=== PATIENT | female | born 1995 | race Caucasian/White ===

== ENCOUNTER → 2017-11-27 | Outpatient (CLI) | payer BC ==
[2017-11-27 18:34] LABS: Basophils # (A) 0.1 k/uL (0-0.2); Basophils % (A) 1 %; Eosinophils # (A) 0.1 k/uL (0-0.7); Eosinophils % (A) 2 %; HCT 43.4 % (34.0-46.0); HGB 13.9 gm/dL (11.4-16.0); Lymphocytes % (A) 33 %; MCH 28.6 pg (25.0-35.0); MCV 89.3 fL (80.0-100.0); Mean Platelet Volume 7.3; Monocytes # (A) 0.3 k/uL (0-1.0); Monocytes % (A) 5 %; Neutrophils # (A) 3.5 k/uL (1.3-7.7); Neutrophils % (A) 57 %; Platelet Count 338 k/uL (150-450); RBC 4.86 m/uL (3.80-5.40); RDW 12.4 % (11.5-15.5); WBC 6.1 k/uL (3.8-10.6)
[2017-11-27 18:39] LABS: ALT 37 U/L (9-52); AST 30 U/L (14-36); Albumin 4.4 g/dL (3.5-5.0); Alkaline Phosphatase 69 U/L (38-126); Anion Gap 12 mmol/L; Blood Urea Nitrogen 13 mg/dL (7-17); Calcium 9.8 mg/dL (8.4-10.2); Carbon Dioxide 29 mmol/L (22-30); Chloride 100 mmol/L (98-107); Glucose 87 mg/dL (74-99); Potassium 4.2 mmol/L (3.5-5.1); Sodium 141 mmol/L (137-145); Total Bilirubin 0.5 mg/dL (0.2-1.3); Total Protein 7.8 g/dL (6.3-8.2)
== END | disposition home or self-care (01) ==
LOC: MMGSC 14:54
PROVIDERS: ATTEND Family Medicine
DX: R23.3 Spontaneous ecchymoses (principal); N39.0 Urinary tract infection, site not specified
CPT/HCPCS: 36415; 80053; 85025; 87086

== ENCOUNTER → 2018-07-01 | Outpatient (CLI) | payer BC ==
[2018-07-01 14:09] LABS: Basophils # (A) 0.1 k/uL (0-0.2); Basophils % (A) 1 %; Eosinophils # (A) 0.1 k/uL (0-0.7); Eosinophils % (A) 1 %; HCT 38.8 % (34.0-46.0); HGB 12.7 gm/dL (11.4-16.0); Lymphocytes # (A) 1.4 k/uL (1.0-4.8); Lymphocytes % (A) 20 %; MCH 28.8 pg (25.0-35.0); MCHC 32.8 g/dL (31.0-37.0); MCV 87.7 fL (80.0-100.0); Mean Platelet Volume 6.5; Monocytes # (A) 0.5 k/uL (0-1.0); Monocytes % (A) 8 %; Neutrophils # (A) 4.5 k/uL (1.3-7.7); Neutrophils % (A) 67 %; Platelet Count 248 k/uL (150-450); RBC 4.43 m/uL (3.80-5.40); WBC 6.7 k/uL (3.8-10.6)
--- NOTE | 2018-07-01 15:49 | XR ---
EXAMINATION TYPE: XR chest 2V DATE OF EXAM: 07/01/2018 COMPARISON: Prior chest x-ray 05/10/2012 HISTORY: Chest pain TECHNIQUE: Frontal and lateral views of the chest are obtained. FINDINGS: There is no focal air space opacity, pleural effusion, or pneumothorax seen. The cardiac silhouette size is within normal limits. The osseous structures are intact. There is a mild spinal curvature. IMPRESSION: No acute cardiopulmonary process.
--- NOTE | 2018-07-01 15:51 | XR ---
Thoracic spine HISTORY: Pain 3 views of the thoracic spine There is a mild dextroscoliosis centered at approximately T9. Thoracic vertebral bodies show preserve d height, alignment, and bone mineralization. Disc spaces are maintained. Mild spondylosis present at the lower thoracic spine. IMPRESSION: Mild spinal curvature, thoracic spondylosis.
[2018-07-01 16:38] LABS: Erythrocyte Sedimentation Rate 25 mm/hr (0-20)
== END | disposition home or self-care (01) ==
LOC: LABWHC1 13:49
PROVIDERS: ATTEND Physician Assistant
DX: R07.9 Chest pain, unspecified (principal); M47.814 Spondylosis without myelopathy or radiculopathy, thoracic region; M43.8X4 Other specified deforming dorsopathies, thoracic region
CPT/HCPCS: 36415; 71046; 72072; 85025; 85652

== ENCOUNTER 2018-10-07 06:26 | Day surgery (SDC) | payer BC ==
[2018-10-01 09:15] VITALS: BMI 28.3
[~2018-10-07 06:26] MED LIST: CLINDAMYCIN 600 MG in DEXTROSE 5% IN WATER 50 ML IVPB ONE; DEXAMETHASONE SOD PHOSPHATE 4 MG/ML 1 ML VIAL IV ONE; FAMOTIDINE 20 MG/2 ML VIAL IV ONE; HYDROmorphone 0.5 MG/0.5 ML SYRINGE IVP PRN; LACTATED RINGERS 1,000 ML IV SCH; MIDAZOLAM 2 MG/2 ML VIAL IV PRN; ONDANSETRON 4 MG/2 ML VIAL IVP ONE; SCOPOLAMINE 1.5MG/72HR PATCH TRANSDERM ONE
[2018-10-07] MEDS: OXYMETAZOLINE 0.05% NASL SPRAY 1 SPRAY BOTTLE NASAL ONE ×5 (07:13→07:47)
[2018-10-07] MEDS ORDERED: LIDOCAINE 1% 20 ML VIAL (10MG/ML) FOR IV START INTRADERMA ONE (07:16)
[2018-10-07] MEDS ORDERED: SUCCINYLCHOLINE CHLORIDE 100 MG/5 ML SYR IV ONE (08:07)
[2018-10-07] MEDS ORDERED: fentaNYL (PF) 50 MCG/ML 2 ML AMP ONE (08:07)
[2018-10-07] MEDS ORDERED: MIDAZOLAM 2 MG/2 ML VIAL ONE (08:07)
[2018-10-07] MEDS ORDERED: HYDROmorphone (PF) 1 MG/ML ONE (08:07)
[2018-10-07] MEDS ORDERED: PROPOFOL 10 MG/ML 20 ML VIAL IV ONE (08:07)
[2018-10-07] MEDS ORDERED: LIDOCAINE 1% INJ 10MG/ML (20 ML MDV) ONE (08:07)
[2018-10-07] MEDS ORDERED: DEXAMETHASONE SOD PHOS (MDV) 100 MG/10 ML VIAL ONE (08:07)
[2018-10-07] MEDS ORDERED: LIDOCAINE 1%-EPI 1:100,000 20 ML VIAL SUBMUCOSAL ONE (08:27)
[2018-10-07] MEDS ORDERED: BACITRACIN 500 UNIT/GM OINT 28.4 GM TUBE TOPICAL ONE (08:43)
--- NOTE | 2018-10-07 09:25 | P.OP ---
Date of Procedure: 10/07/18 Preoperative Diagnosis: Deviated nasal septum Inferior turbinate hypertrophy Chronic tonsillitis Tonsillar hypertrophy Postoperative Diagnosis: Same Procedure(s) Performed: Septoplasty Outfracture and submucous resection of the inferior turbinates Adenotonsillectomy Anesthesia: MYRA Surgeon: Kush Arellano Estimated Blood Loss (ml): 5 Pathology: other (Nasal septal bone and cartilage, tonsils) Condition: stable Disposition: PACU Indications for Procedure: This is a 22-year-old white female who has had difficulties with chronic nasal airway obstruction and noted deviated septum and inferior turbinate hypertrophy as well as chronic tonsillitis and tonsillar cryptitis Operative Findings: Nasal septum deviated to the right with inferior turbinate hypertrophy bilaterally, tonsils +3 bilaterally and are cryptic, mild adenoid hypertrophy Description of Procedure: The patient was brought in the operative suite and placed in a supine position. The patient underwent induction of general anesthesia with oral endotracheal intubation without difficulty. The patient was prepped and draped in usual aseptic fashion. 1% lidocaine with 1-100,000 epinephrine was infused submucosally both sides nasal septum. While this was taking vasoconstrictive effect the inferior turbinates were infractured with the Pickett elevator partial submucous resection inferior turbinates performed with Coblation wand thus ablating a portion of the submucosal soft tissue and then outfractured with the Pickett elevator. A left hemitransfixion incision was made with the mucoperichondrial and periosteal flap on the left elevated. Bony cartilaginous junction was disarticulated and mucoperiosteal flap on the right was elevated. Bony nasal septal deformities were removed Silvia forceps. An inferior cartilaginous strip was removed leaving a full 1.5 cm caudal strut. Checking intranasally this corrected the nasoseptal deformities and the hemitransfixion incision was closed with a running 4-0 chromic suture. Bilateral Rudolph airway splints coated bacitracin ointment were placed in nasal cavities and sutured trans- septally with a 4-0 nylon suture. The McIvor mouth gag was placed and soft palate was palpated. No submucous cleft was noted. Red Chamberlain catheters placed through the left nasal cavity and pulled through the oropharynx for soft palate retraction. Nasopharynx examined with a mirror exam and the adenoids were ablated with suction cautery thus removing them but with cautery. Hemostasis was excellent and the catheter was removed. The left tonsil was grasped with a curved Allis clamp and dissected from the tonsillar fossa in a superior to inferior direction using both blunt and electrocautery dissection until the tonsil was removed. Once the tonsil was removed hemostasis was gained with suction cautery. Once hemostasis was obtained attention was turned to the right where the right tonsil was removed exactly as the left had been. Once this tonsil was removed hemostasis was gained to suction cautery. Once hemostasis was obtained and remained good in both tonsillar fossa the patient was suctioned in oral gastric fashion. The McIvor mouth gag was removed and the patient was allowed to emerge from general anesthesia having tolerated procedure well was extubated in the operating suite and transferred to the postop recovery area in satisfactory condition.
[2018-10-07 09:35] VITALS: RESP 16; TEMP 98
[2018-10-07] MEDS ORDERED: ONDANSETRON 4 MG/2 ML VIAL IVP ONE (09:51)
[2018-10-07] MEDS ORDERED: HYDROcodone/APAP 5-325MG 1 EACH TAB PO ONE (10:55)
[2018-10-07 11:30] VITALS: BP 123/90; PULSE 76
== END 2018-10-07 11:57 | disposition home or self-care (01) ==
LOC: OR 06:26
PROVIDERS: ATTEND Otolaryngology
DX: J34.2 Deviated nasal septum (principal); J34.3 Hypertrophy of nasal turbinates; J35.01 Chronic tonsillitis; F32.9 Major depressive disorder, single episode, unspecified; Z79.1 Long term (current) use of non-steroidal anti-inflammatories (NSAID); Z79.899 Other long term (current) drug therapy; Z88.0 Allergy status to penicillin; J45.20 Mild intermittent asthma, uncomplicated; G47.00 Insomnia, unspecified
CPT/HCPCS: 81025; 88304; 88300; 30520; 30140; 42821; J2250; J2405; J2001; J3010; J1170 ×2; J1100; J0330; J2704

== ENCOUNTER 2019-09-29 02:35 | Inpatient (IN) | payer BC, OTHER ==
[2019-09-29] MEDS ORDERED: LIDOCAINE 0.5% (PF) 5 MG/ML (50 ML SDV) SQ PRN (03:08)
[2019-09-29] MEDS ORDERED: OXYTOCIN 10 UNIT/ML 1 ML VIAL IM PRN (03:08)
[2019-09-29] MEDS ORDERED: TERBUTALINE 1 MG/ML VIAL SQ PRN (03:08)
[2019-09-29] MEDS ORDERED: METHYLERGONOVINE 0.2 MG/ML 1 ML AMP IM PRN (03:08)
[2019-09-29] MEDS ORDERED: CARBOPROST TROMETHAMINE 250 MCG/ML 1 ML AMP IM PRN (03:08)
[2019-09-29] MEDS: LACTATED RINGERS 1,000 ML IV SCH ×3 (03:15→11:41)
[2019-09-29 03:25] LABS: Basophils # (A) 0.1 k/uL (0-0.2); Basophils % (A) 1 %; Eosinophils # (A) 0.2 k/uL (0-0.7); Eosinophils % (A) 2 %; HCT 36.3 % (34.0-46.0); HGB 12.4 gm/dL (11.4-16.0); Lymphocytes # (A) 1.7 k/uL (1.0-4.8); Lymphocytes % (A) 16 %; MCH 29.7 pg (25.0-35.0); MCHC 34.2 g/dL (31.0-37.0); MCV 86.8 fL (80.0-100.0); Mean Platelet Volume 8.9; Monocytes # (A) 0.5 k/uL (0-1.0); Monocytes % (A) 5 %; Neutrophils # (A) 7.8 k/uL (1.3-7.7); Neutrophils % (A) 74 %; Platelet Count 245 k/uL (150-450); RBC 4.18 m/uL (3.80-5.40); RDW 13.9 % (11.5-15.5); WBC 10.6 k/uL (3.8-10.6)
[2019-09-29] MEDS ORDERED: ROPIVACAINE 100 MG, fentaNYL (PF) 200 MCG in SODIUM CHLORIDE 0.9% 76 ML EPIDURAL ONE (05:31)
--- NOTE | 2019-09-29 07:52 | P.HPOB ---
History of Present Illness H&P Date: 09/29/19 Chief Complaint: Spontaneous rupture of membranes at 39-0/7 weeks This is a 23-year-old 1 para 0 woman who presents at 39-0/7 weeks' gestation with spontaneous rupture of membranes and active labor. Her estimated due date is 10/06/2019 based on LMP consistent with second trimester ultrasound. She has had an uncomplicated . She reports several contractions in the night followed by a large gush of fluid. She presented to labor and delivery triage where rupture of membranes was confirmed. She was 4 cm dilated and began actively harshil. Currently she is resting comfortable with an epidural anesthetic in place. Laboratory data: Blood type O positive, antibody screen negative, rubella immune, VDRL nonreactive, hepatitis b antigen negative, HIV negative, gonorrhea and clinically cultures negative, diabetes screening within normal limits, hem oglobin A1c 5.4, group B strep negative. Review of Systems All systems: negative Past Medical History Past Medical History: Asthma Additional Past Medical History / Comment(s): frequent sinus infections, enlarged tonsil History of Any Multi-Drug Resistant Organisms: None Reported Past Surgical History: Adenoidectomy, Tonsillectomy Additional Past Surgical History / Comment(s): oral surgery, colonoscopy Past Anesthesia/Blood Transfusion Reactions: Motion Sickness Past Psychological History: Anxiety, Depression Smoking Status: Never smoker Past Alcohol Use History: Occasional Past Drug Use History: None Reported - Past Family History Mother History Unknown: Yes Family Medical History: Cancer, Hypertension, Rheumatoid Arthritis (RA) Additional Family Medical History / Comment(s): cervical cancer Medications and Allergies Home Medications Medication Instructions Recorded Confirmed Type No Known Home Medications 09/29/19 09/29/19 History Allergies Allergy/AdvReac Type Severity Reaction Status Date / Time Penicillins Allergy Rash/Hives Verified 09/29/19 02:45 Exam Vital Signs Temp Pulse Resp BP Pulse Ox 09/29/19 03:06 98.1 F 100 18 138/96 100 09/29/19 02:51 98.1 F 100 16 138/96 100 Intake and Output 09/28/19 09/29/19 09/29/19 22:59 06:59 14:59 Other: Weight 99.79 kg Targeted physical exam is performed. This is a pleasant, visibly gravid female in no obvious distress. On pelvic examination her cervix is 6 cm dilated, 90% effaced and the vertex is in the -3 station. heart tones are category 1. She is harshil spontaneously every 2-3 minutes. She has 1+ lower extremity edema. Results Result Diagrams: 09/29/19 03:17 Abnormal Lab Results - Last 24 Hours (Table) 09/29/19 Range/Units 03:17 Neutrophils # 7.8 H (1.3-7.7) k/uL Assessment and Plan (1) 39 weeks gestation of Current Visit: Yes Status: Acute Code(s): Z3A.39 - 39 WEEKS GESTATION OF GA EGNANCY SNOMED Code(s): 77385375 (2) Spontaneous onset of labor Current Visit: Yes Status: Acute Code(s): [id number] - SNOMED Code(s): 22733268 (3) Spontaneous rupture of membranes Current Visit: Yes Status: Acute Code(s): IAG6031 - SNOMED Code(s): 214229942 Plan: 23-year-old 1 para 0 woman at 39-0/7 weeks' gestation with spontaneous rupture of membranes and active labor. heart tones category 1. She is group B strep negative and Rh+. She is comfortable with epidural. Expectant management.
[2019-09-29] MEDS ORDERED: ACETAMINOPHEN TAB 325 MG TAB PO PRN (18:12)
[2019-09-29] MEDS ORDERED: SIMETHICONE 80 MG CHEWABLE PO PRN (18:12)
[2019-09-29] MEDS ORDERED: ZOLPIDEM 5 MG TAB PO PRN (18:12)
[2019-09-29] MEDS ORDERED: HYDROCORTISONE 2.5% RECTAL CREAM 30 GM TUBE RECTAL PRN (18:12)
[2019-09-29] MEDS ORDERED: diphenhydrAMINE 25 MG CAP PO PRN (18:12)
[2019-09-29] MEDS ORDERED: BENZOCAINE/MENTHOL SPRAY 1 GM/SPRAY AEROSOL TOPICAL PRN (18:12)
[2019-09-29] MEDS ORDERED: LANOLIN CREAM 5 GM TUBE TOPICAL PRN (18:12)
[2019-09-29] MEDS ORDERED: WITCH HAZEL 1 EACH MED..PAD TOPICAL PRN (18:12)
[2019-09-29] MEDS ORDERED: diphenhydrAMINE 50 MG CAP PO PRN (18:12)
[2019-09-29] MEDS ORDERED: diphenhydrAMINE 50 MG/ML 1 ML VIAL IVP PRN ×2 (18:12)
--- NOTE | 2019-09-29 18:12 | P.PROBDLV ---
Vaginal Delivery Note - . Vaginal Delivery Note: findings: Male infant in the vertex left occiput anterior position with Apgars of 9 at 1 minute and 9 at 5 minutes weighing 7 lbs. 10 oz., 3465 g. Right labial abrasion. Intact, three-vessel cord placenta. EBL 200 mL's. Delivery summary: This is a 23-year-old 1 para 0 woman who presented at 39-0/7 weeks gestation with spontaneous rupture of membranes and active labor. She had clear fluid. Upon presentation she was 3+ centimeters dilated with positive rupture of membranes. She was admitted and began harshil spontaneously. She received an epidural anesthetic. Time of rupture was 145. She reached complete cervical dilation by approximately 1700 and commenced pushing with excellent maternal effort. She had reassuring category 1 heart tones throughout. When she had pushed successfully to she was repositioned, prepped and draped in the modified Maninder position. With additional maternal effort the head delivered from the left occiput anterior position. The anterior followed by the posterior shoulders were delivered onto the field and the nose and mouth were bulb suctioned. The was placed on the maternal abdomen. After waiting for the cord stopped pulsing it was clamped and cut. An intact, three-vessel cord placenta was then expressed. Second stage of labor was less than 1 hour. Third stage of labor was approximately 5 minutes. The perineum vagina and cervix were inspected and there was an abrasion on the right labia that was not actively bleeding. No perineal or no perineal lacerations noted. The uterus was massaged and was noted to be firm at the level of the umbilicus. The patient received Pitocin following delivery of the placenta. All counts were correct. Both mother and infant were doing well post delivery in the room.
[2019-09-29] MEDS ORDERED: OXYTOCIN 20 UNITS/1000 ML NS 1,000 ML IV SCH (18:15)
[2019-09-29] MEDS: IBUPROFEN 600 MG TAB PO PRN (19:44)
[2019-09-29] MEDS: SENNOSIDES-DOCUSATE SODIUM 1 EACH TAB PO SCH (21:22)
[2019-09-30 00:36] VITALS: RESP 16
[2019-09-30] MEDS: IBUPROFEN 600 MG TAB PO PRN ×3 (02:06→15:45)
[2019-09-30 08:00] LABS: Basophils # (A) 0.1 k/uL (0-0.2); Basophils % (A) 1 %; Eosinophils # (A) 0.3 k/uL (0-0.7); Eosinophils % (A) 2 %; HCT 27.2 % (34.0-46.0); Lymphocytes % (A) 17 %; MCH 29.8 pg (25.0-35.0); MCHC 33.5 g/dL (31.0-37.0); MCV 88.9 fL (80.0-100.0); Mean Platelet Volume 9.3; Monocytes # (A) 0.5 k/uL (0-1.0); Monocytes % (A) 5 %; Neutrophils # (A) 8.7 k/uL (1.3-7.7); Neutrophils % (A) 74 %; Platelet Count 195 k/uL (150-450); RBC 3.06 m/uL (3.80-5.40); RDW 14.4 % (11.5-15.5); WBC 11.7 k/uL (3.8-10.6)
[2019-09-30 08:10] LABS: HGB 9.1 gm/dL (11.4-16.0)
[2019-09-30] MEDS: SENNOSIDES-DOCUSATE SODIUM 1 EACH TAB PO SCH (08:22)
--- NOTE | 2019-09-30 08:25 | P.DS ---
Providers Date of admission: 09/29/19 02:50 Expected date of discharge: 09/30/19 Attending physician: Jessy Levine Primary care physician: Stated None - Discharge Diagnosis(es) (1) 39 weeks gestation of Current Visit: Yes Status: Acute (2) Spontaneous onset of labor Current Visit: Yes Status: Acute (3) Spontaneous rupture of membranes Current Visit: Yes Status: Acute (4) Normal spontaneous vaginal delivery Current Visit: Yes Status: Acute Hospital Course: this is a 23 year old 1 now para 1 woman who presented at 39 weeks g estation with spontaneous rupture of membranes and active labor. Following admission she did receive an epidural anesthetic in the first stage of labor. She went on to reach complete cervical dilation and had an unremarkable second stage of labor to deliver a liveborn male over an intact perineum. Apgars were 9 at 1 minute and 9 at 5 minutes and weight was 7 lbs. 10 oz. Her course was unremarkable. By day #1 she is ambulating and voiding without difficulty. Her lochia is moderate. She is breast-feeding successfully. Her vital signs are stable. Her day #1 hemoglobin is 9.1 and her uterus is firm and nontender. She is therefore discharged home on day #1 with routine instructions for care and follow-up Procedures: normal spontaneous vaginal delivery Patient Condition at Discharge: Good Plan - Discharge Summary New Discharge Prescriptions: No Action No Known Home Medications Discharge Medication List No Known Home Medications 09/29/19 [History] Follow up Appointment(s)/Referral(s): Jessy Levine MD [STAFF PHYSICIAN] - 6 Weeks Activity/Diet/Wound Care/Special Instructions: Follow-up in the office in 6 weeks . Call with any concerning signs or symptoms including heavy vaginal bleeding, severe abdominal pain, fever greater than 101, swelling or redness of the lower extremities, foul vaginal discharge, or signs of depression. Nothing in the vagina for 6 weeks after delivery, specifically no intercourse. May use [id number] ibuprofen and/or Tylenol as needed for pain. Discharge Disposition: HOME SELF-CARE
[2019-09-30 15:43] VITALS: BP 129/78; PULSE 78; TEMP 98.2
== END 2019-09-30 18:54 | disposition home or self-care (01) | DRG 807 ==
LOC: FBPOP 02:35 → 4FBP 02:50
PROVIDERS: ADMIT Obstetrics & Gynecology Obstetrics; ATTEND Obstetrics & Gynecology
PROC: 10E0XZZ Delivery of Products of Conception, External Approach (ICD-10-PCS; principal; 2019-09-29)
PROC: 00HU33Z Insertion of Infusion Device into Spinal Canal, Percutaneous Approach (ICD-10-PCS; principal; 2019-09-29)
PROC: 3E0R3BZ Introduction of Anesthetic Agent into Spinal Canal, Percutaneous Approach (ICD-10-PCS; principal; 2019-09-29)
DX: O99.52 Diseases of the respiratory system complicating childbirth (principal); Z37.0 Single live birth; O99.344 Other mental disorders complicating childbirth; O71.82 Other specified trauma to perineum and vulva; Z3A.39 39 weeks gestation of pregnancy; J45.909 Unspecified asthma, uncomplicated; F41.9 Anxiety disorder, unspecified; F32.9 Major depressive disorder, single episode, unspecified; Z82.49 Family history of ischemic heart disease and other diseases of the circulatory system; Z80.49 Family history of malignant neoplasm of other genital organs
CPT/HCPCS: 59025; 84112; 85025; 86850; 86900; 86901; 99213